=== PATIENT | female | born 2000 | race Caucasian/White ===

== ENCOUNTER 2021-07-28 16:56 | Emergency (ER) | payer OTHER ==
[2021-07-28 17:34] VITALS: BP 125/90; PULSE 91; TEMP 97.6; BMI 39.7
[2021-07-28] MEDS ORDERED: ACETAMINOPHEN 1000 MG/100 ML VIAL (NON FORMULARY) IVPB ONE (17:37)
[2021-07-28 18:21] LABS: BASO % 0.8 % (0-2.0); HEMATOCRIT 42.1 % (32.4-45.2); HEMOGLOBIN 14.4 GM/dL (10.7-15.3); LYMPH % 25.5 % (8-40); MCHC 34.2 g/dl (32.0-36.0); MEAN CELL VOLUME 90.8 fl (80-96); MEAN PLT VOLUME 10.4 fl (7.5-11.1); MONO % 6.8 % (3.8-10.2); NEUT % 65.9 % (42.8-82.8); PLATELET COUNT 260 10^3/uL (134-434); RBC 4.64 M/mm3 (3.60-5.2); RDW 13.1 % (11.6-15.6); WHITE BLOOD COUNT 7.2 K/mm3 (4.0-10.0)
[2021-07-28 18:41] LABS: ALBUMIN 4.5 g/dl (3.4-5.0); BLOOD UREA NITROGEN 7.9 mg/dL (7-18); CALCIUM 9.5 mg/dL (8.5-10.1)
[2021-07-28 18:44] LABS: CREATININE 0.7 mg/dL (0.55-1.3)
[2021-07-28 18:46] LABS: TOT PROT 8.2 g/dl (6.4-8.2)
[2021-07-28 20:08] LABS: EPI CELLS >36 /uL (0-25.1); HYALINE CASTS 6 /uL (0-3.1); PH,URINE 5.5 (5.0-8.0); URINE APPEARANCE TURBID; URINE BACTERIA 743 /uL (0-1359); URINE BILIRUBIN 1+ (NEGATIVE); URINE COLOR ORANGE; URINE GLUCOSE (UA) TRACE (NEGATIVE); URINE KETONE TRACE (NEGATIVE); URINE LEUK ESTERASE 1+ (NEGATIVE); URINE NITRITE NEGATIVE (NEGATIVE); URINE PROTEIN 2+ (NEGATIVE); URINE RBC 16346 /uL (0-23.9); URINE WBC 77 /uL (0-25.8)
[2021-07-28 20:32] LABS: URINE CRYSTALS FEW CALCIUM OXALATE /hpf
== END 2021-07-28 21:54 | disposition home or self-care (01) ==
LOC: JER 16:56
DX: N20.0 Calculus of kidney (principal)
CPT/HCPCS: 36415; 74176-TC; 76705-TC; 80053; 81003; 83690; 84703; 85025; 87086; 99285-25; J0131

== ENCOUNTER 2021-08-13 10:00 | Day surgery (SDC) | payer OTHER ==
[2021-08-10 11:04] VITALS: BMI 38.3
[2021-08-13] MEDS ORDERED: ONDANSETRON 4 MG/2 ML VIAL IVPUSH PRN (14:53)
[2021-08-13] MEDS ORDERED: oxyCODONE HCL 5 MG TABLET PO PRN (14:53)
[2021-08-13] MEDS ORDERED: LACTATED RINGERS SOLUTION 1,000 ML IV SCH (15:00)
[2021-08-13 16:44] VITALS: BP 92/58; PULSE 77; TEMP 97.3
== END 2021-08-13 17:00 | disposition home or self-care (01) ==
LOC: JASU-SURG 10:00
PROVIDERS: ATTEND Urology
PROC: 0TJB8ZZ Inspection of Bladder, Via Natural or Artificial Opening Endoscopic (ICD-10-PCS; principal; 2021-08-13 13:00)
PROC: BT1DYZZ Fluoroscopy of Right Kidney, Ureter and Bladder using Other Contrast (ICD-10-PCS; 2021-08-13 13:00)
DX: N13.30 Unspecified hydronephrosis (principal)
CPT/HCPCS: 81025; 94760

== ENCOUNTER 2021-08-15 02:02 | Day surgery (SDC) | payer OTHER ==
[2021-08-15 02:19] VITALS: BMI 38.3
[2021-08-15] MEDS ORDERED: ONDANSETRON 4 MG/2 ML VIAL IVPUSH ONE (02:32)
[2021-08-15] MEDS ORDERED: SODIUM CHLORIDE 1,000 ML IV STA (02:32)
[2021-08-15] MEDS ORDERED: ONDANSETRON 4 MG/2 ML VIAL ONE (02:40)
[2021-08-15] MEDS ORDERED: ACETAMINOPHEN 1000 MG/100 ML VIAL IVPB ONE (03:32)
[2021-08-15 03:34] LABS: BASO % 0.4 % (0-2.0); EOS % 0.9 % (0-4.5); HEMATOCRIT 39.8 % (32.4-45.2); HEMOGLOBIN 13.2 GM/dL (10.7-15.3); LYMPH % 18.9 % (8-40); MCH 30.6 pg (25.7-33.7); MCHC 33.3 g/dl (32.0-36.0); MEAN PLT VOLUME 10.3 fl (7.5-11.1); MONO % 8.3 % (3.8-10.2); NEUT % 71.5 % (42.8-82.8); PLATELET COUNT 245 10^3/uL (134-434); RBC 4.32 M/mm3 (3.60-5.2); RDW 13.3 % (11.6-15.6); WHITE BLOOD COUNT 11.3 K/mm3 (4.0-10.0)
[2021-08-15 03:52] LABS: ALBUMIN 3.9 g/dl (3.4-5.0); BLOOD UREA NITROGEN 13.4 mg/dL (7-18); CALCIUM 8.8 mg/dL (8.5-10.1)
[2021-08-15 03:57] LABS: BILIRUBIN,TOTAL 0.8 mg/dL (0.2-1); TOT PROT 7.4 g/dl (6.4-8.2)
[2021-08-15] MEDS ORDERED: ACETAMINOPHEN INJECTION 100 ML IVPB ONE (04:06)
[2021-08-15] MEDS ORDERED: MAG HYDROX/AL HYDROX/SIMETH 30 ML UNIT-DOSE CUP ONE (04:49)
[2021-08-15] MEDS ORDERED: MAG HYDROX/AL HYDROX/SIMETH -MYLANTA- ORAL SUSPENSION PO ONE (04:53)
[2021-08-15 05:45] LABS: EPI CELLS 14 /uL (0-25.1); HYALINE CASTS 1 /uL (0-3.1); PH,URINE 5.5 (5.0-8.0); URINE APPEARANCE CLOUDY; URINE BILIRUBIN NEGATIVE (NEGATIVE); URINE COLOR DK YELLOW; URINE GLUCOSE (UA) NEGATIVE (NEGATIVE); URINE KETONE TRACE (NEGATIVE); URINE LEUK ESTERASE NEGATIVE (NEGATIVE); URINE NITRITE POSITIVE (NEGATIVE); URINE PROTEIN TRACE (NEGATIVE); URINE RBC 1670 /uL (0-23.9); URINE WBC 37 /uL (0-25.8)
[2021-08-15] MEDS ORDERED: ACETAMINOPHEN 1000 MG/100 ML VIAL IVPB PRN (06:19)
[2021-08-15] MEDS ORDERED: TAMSULOSIN HCL 0.4 MG CAP PO SCH (08:30)
[2021-08-15] MEDS ORDERED: SODIUM CHLORIDE 1,000 ML IV SCH (08:30)
[2021-08-15] MEDS ORDERED: ONDANSETRON 4 MG/2 ML VIAL IVPUSH PRN ×2 (08:50→17:54)
[2021-08-15] MEDS ORDERED: TAMSULOSIN HCL 0.4 MG CAP ONE (09:01)
[2021-08-15] MEDS ORDERED: CEFTRIAXONE 1 GM/50 ML BAG ONE (09:01)
[2021-08-15] MEDS ORDERED: CEFTRIAXONE 1 GM in DEXTROSE 5%-WATER - 50 ML IVPB SCH (10:00)
[2021-08-15 10:29] LABS: URINE BACTERIA MODERATE /uL (0-1359); URINE CRYSTALS CALCIUM OXALATE 2+ /hpf
[2021-08-15] MEDS ORDERED: MIDAZOLAM HCL 2 MG/2 ML SINGLE DOSE VIAL ONE (17:14)
[2021-08-15] MEDS ORDERED: PROPOFOL 20 ML ONE ×2 (17:14)
[2021-08-15] MEDS ORDERED: LACTATED RINGERS SOLUTION 1,000 ML IV SCH (18:00)
[2021-08-15] MEDS ORDERED: DEXAMETHASONE SOD PHOSPHATE 4 MG/1 ML VIAL ONE (18:09)
[2021-08-15 19:56] VITALS: BP 119/73; PULSE 89; TEMP 98.1
[2021-08-28 09:29] LABS: SIZE 2 x 3 mm; WEIGHT 6 mg
== END 2021-08-15 20:00 | disposition home or self-care (01) ==
LOC: SUATTDRO 02:02 → JER 02:02 → JASUSAT 10:41 → SUATTDRO 10:41 → JASUSAT 20:00
PROVIDERS: ATTEND Internal Medicine
PROC: 0TC78ZZ Extirpation of Matter from Left Ureter, Via Natural or Artificial Opening Endoscopic (ICD-10-PCS; principal; 2021-08-15 17:00)
PROC: 0T768DZ Dilation of Right Ureter with Intraluminal Device, Via Natural or Artificial Opening Endoscopic (ICD-10-PCS; 2021-08-15 17:00)
PROC: BT1DYZZ Fluoroscopy of Right Kidney, Ureter and Bladder using Other Contrast (ICD-10-PCS; 2021-08-15 17:00)
DX: N20.1 Calculus of ureter (principal)
CPT/HCPCS: 36415; 74176-TC; 76000-TC-FY; 80053; 81003; 82360; 84703; 85025; 87086; 94760; 99285-25; C9803; J0131; U0003; U0005

== ENCOUNTER 2024-04-20 12:42 | Emergency (ER) | payer OTHER ==
[2024-04-20 12:59] VITALS: BP 137/91; PULSE 93; RESP 17; TEMP 98.7; BMI 46.4
[2024-04-20 15:09] LABS: HCG,QUALITATIVE URINE Negative
[2024-04-20 15:11] LABS: EPI CELLS >36 /uL (0-25.1); HYALINE CASTS 8 /uL (0-3.1); PH,URINE 6.5 (5.0-8.0); URINE APPEARANCE CLOUDY; URINE BACTERIA 188 /uL (0-1359); URINE BILIRUBIN NEGATIVE (NEGATIVE); URINE COLOR DK YELLOW; URINE GLUCOSE (UA) NEGATIVE (NEGATIVE); URINE KETONE 3+ (NEGATIVE); URINE LEUK ESTERASE NEGATIVE (NEGATIVE); URINE NITRITE NEGATIVE (NEGATIVE); URINE PROTEIN 2+ (NEGATIVE); URINE RBC 5 /uL (0-23.9); URINE WBC 20 /uL (0-25.8)
== END 2024-04-20 15:28 | disposition home or self-care (01) ==
LOC: JERFT 12:42
DX: N39.0 Urinary tract infection, site not specified (principal); R30.0 Dysuria
CPT/HCPCS: 81003; 84703; 87086; 99283-25